=== PATIENT | male | born 1995 | race African-American/Black ===

== ENCOUNTER 2021-06-21 15:37 | Emergency (ER) | payer SELFPAY ==
[2021-06-22 13:09] LABS: SARS-CoV-2 PCR by NAA DETECTED (NotDetected)
== END 2021-06-21 16:03 | disposition home or self-care (01) ==
LOC: BURERS 15:37
DX: U07.1 COVID-19 (principal); F17.210 Nicotine dependence, cigarettes, uncomplicated
CPT/HCPCS: 87804; 99283; U0003; U0005

== ENCOUNTER 2021-12-13 22:33 | Emergency (ER) | payer OTHER, SELFPAY | END 2021-12-13 22:58 | disposition home or self-care (01) | LOC: BURERS 22:33 | DX: U07.1 COVID-19 (principal); F17.210 Nicotine dependence, cigarettes, uncomplicated | CPT/HCPCS: 99283; U0003; U0005 ==